=== PATIENT | male | born 1970 | race African-American/Black ===

== ENCOUNTER 2019-04-11 06:47 | Day surgery (SDC) | payer OTHER ==
[~2019-04-11] VITALS: Ht 185.4 cm; Wt 111.1 kg
[2019-04-11 07:28] LABS: ANION GAP 13.8 mmol/L (8-16); CALCIUM 9.1 mg/dL (8.5-10.1); CARBON DIOXIDE 26.3 mmol/L (21.0-32.0); CREATININE - SERUM 1.5 mg/dL (0.6-1.3); POTASSIUM - SERUM 4.1 mmol/L (3.5-5.1)
[2019-04-11] MEDS ORDERED: GLUCOPHAGE1000 MG PO (07:57)
[2019-04-11] MEDS ORDERED: NOVOLIN 70/30 110 ML SC ×2 (07:59)
[2019-04-11] MEDS ORDERED: BAYER CHEWABLE81 MG PO (08:00)
[2019-04-11] MEDS ORDERED: ZOCOR20 MG PO (08:00)
[2019-04-11] MEDS ORDERED: LISINOPRIL40 MG PO (08:00)
[2019-04-11] MEDS ORDERED: HYDROCHLOROTHIA25 MG PO (08:01)
[2019-04-11] MEDS ORDERED: VERAPAMIL HCL40 MG PO (08:02)
[2019-04-11 08:07] VITALS: BP 142/86; Ht 185.4 cm; Wt 111.1 kg
[2019-04-11 08:32] LABS: HEMATOCRIT 36.2 % (42.0-54.0); HEMOGLOBIN 12.6 g/dL (13.5-17.5); MCH 29.4 pg (26.0-34.0); MCHC 34.8 g/dL (31.0-37.0); MCV 84.6 fL (80.0-100.0); MEAN PLATELET VOLUME 10.5 fL (7.4-10.4); RBC 4.28 10x6/uL (4.20-6.10); RDW 13.8 % (11.5-14.5); WBC 10.6 10x3/uL (4.8-10.8)
--- NOTE | 2019-04-11 14:37 | NUR ---
1400 IV DC'D. CATHETER INTACT. NO BLEEDING AT SITE. BANDAID APPLIED.
--- NOTE | 2019-04-11 15:27 | OP ---
PATIENT NAME: ASHLEY SADLER MEDICAL RECORD: [id number] :68 LOCATION:[facility] ADMISSION DATE: SURGEON: ELIESER MADRID DO DATE OF OPERATION: 04/11/2019 PROCEDURE PERFORMED: Right shoulder lysis of adhesions and manipulation under anesthesia. PREOPERATIVE DIAGNOSIS: Right shoulder adhesive capsulitis. POSTOPERATIVE DIAGNOSES: Right shoulder adhesive capsulitis with right SLAP tear. INDICATIONS: Mr. Sadler is a 49-year-old male who had surgery on his right upper extremity about a year ago. Since then, he has developed left shoulder motion. He was concerned with that and checked out and seemed to have very poor motion of his shoulder. He had zero external rotation at the side and forward flexion only to approximately 80 degrees and abduction to about 60. He had internal rotation to the hip. He had been through physical therapy. He was a diabetic and predisposed developing scar tissue due to that and has adhesive capsulitis. I informed him of the risks including infection, bleeding, damage to nerves and vessels, need for further surgery, fracture, continued shoulder pain, continued loss of motion if he did not do his exercises or get physical therapy even though is an inmate and he would need to do the exercises as much as possible to get the motion back. He was aware of that and he signed the consent. SURGEON: Elieser Madrid DO DESCRIPTION OF PROCEDURE: The patient received a block by anesthesia in the preoperative area. He was taken to the operative suite, laid in the left lateral decubitus position with an axillary roll under the axilla. The right shoulder was prepped and draped in sterile fashion. He was given 2 grams of Ancef preoperatively. Once the shoulder was prepped and draped, a timeout was performed, everyone was in agreement with the correct side, site, patient, and procedure. The procedure then began by insufflating the shoulder joint with 60 mL of normal saline through the posterior portal. Once that was insufflated with an 18-gauge spinal needle, the spinal was then removed. An 11 blade scalpel was used to establish the posterior portal. Trocar was then entered into the joint. Once it was then entered into the joint, the camera was then entered and then the anterior portal was established with an 18-gauge spinal needle and 11-blade scalpel. A probe was brought in. The SLAP tear was noted as well as severe adhesions in the rotator interval. There was no tear seen in the supraspinatus, subscapularis. No loose bodies in the inferior gutter, but the SLAP tear was noted. Due to the fact that we did not talk about this previously, I did not do a biceps tenotomy and tenodesis at that time. This will be discussed with him further. The burner was then brought in through the anterior portal and the rotator interval was opened up and all the adhesions were removed with the burner and then went to the subacromial space. He had several adhesions there as well. No tear was seen on the bursal side either, but the adhesions were taken down in the subacromial space with the burner and the shaver. Then, the water was turned off, suction was turned on, and the scope was removed as well as the burner and shaver. The lateral portal had been established prior to doing the subacromial port with an 18-gauge spinal needle and 11-blade scalpel. All the instruments were then removed and the patient was OPERATIVE REPORT [id number] ASHLEY SADLER manipulated first in forward flexion. He had good release with that up to 180 degrees. We got a nice release and then external rotation at this side, got to 90 degrees and abduction to 150 and external rotation at abduction to 90 and internal rotation as well. Once all those motions were restored, the portal sites were closed with 4-0 Monocryl in an inverted interrupted fashion and Dermabond was placed on them. Telfa and Tegaderm were placed on top of that. He was placed in the sling, was awakened and taken to recovery in stable condition. BLOOD LOSS: Minimal. COMPLICATIONS: None. TRANSINT:[id number] Voice Confirmation ID: [id number] DOCUMENT ID: [id number] ELIESER MADRID DO at 1527 CC: [id number] DICTATION DATE: 04/11/19 1245 HELICOPTER DISPATCHER: 04/11/19 1521 [facility] 04/11/19 [facility] [address] [place] [address]
== END 2019-04-11 14:29 | disposition home or self-care (01) ==
LOC: D.OPS 06:47
PROVIDERS: Anesthesiology; ATTEND Orthopaedic Surgery
DX: M75.01 Adhesive capsulitis of right shoulder (principal); S43.431A Superior glenoid labrum lesion of right shoulder, initial encounter; X58.XXXA Exposure to other specified factors, initial encounter; Z01.812 Encounter for preprocedural laboratory examination